=== PATIENT | female | born 1965 | race Caucasian/White ===

== ENCOUNTER 2018-03-30 05:30 | Day surgery (SDC) | payer OTHER | END 2018-03-30 09:40 | disposition home or self-care (01) | LOC: AMB-ENDOS 05:30 → AMB-ERCP 10:00 | DX: C18.2 Malignant neoplasm of ascending colon (principal); K64.1 Second degree hemorrhoids ==

== ENCOUNTER 2019-05-03 05:25 | Day surgery (SDC) | payer OTHER | END 2019-05-03 09:35 | disposition home or self-care (01) | LOC: AMB-ENDOS 05:25 → ADM 12:00 | DX: K62.89 Other specified diseases of anus and rectum (principal); K64.1 Second degree hemorrhoids ==